=== PATIENT | male | born 1965 | race Caucasian/White ===

== ENCOUNTER 2021-06-19 10:23 | Emergency (ER) | payer OTHER ==
[2021-06-19] MEDS ORDERED: Cipro 250 MG TAB ONE (11:14)
[2021-06-19] MEDS ORDERED: metroNIDAZOLE 500 MG TAB ONE (11:14)
== END 2021-06-19 11:24 | disposition home or self-care (01) ==
LOC: NAV ERS 10:23
DX: K57.92 Diverticulitis of intestine, part unspecified, without perforation or abscess without bleeding (principal); E78.5 Hyperlipidemia, unspecified; K21.9 Gastro-esophageal reflux disease without esophagitis; E78.00 Pure hypercholesterolemia, unspecified; I25.2 Old myocardial infarction; Z79.82 Long term (current) use of aspirin; Z79.899 Other long term (current) drug therapy
CPT/HCPCS: 99283

== ENCOUNTER 2022-10-01 20:18 | Emergency (ER) | payer OTHER ==
[2022-10-01] MEDS ORDERED: Azithromycin 250 MG TAB ONE (20:47)
== END 2022-10-01 20:50 | disposition home or self-care (01) ==
LOC: NAV ERS 20:18
DX: H66.91 Otitis media, unspecified, right ear (principal); J06.9 Acute upper respiratory infection, unspecified; K21.9 Gastro-esophageal reflux disease without esophagitis; E78.00 Pure hypercholesterolemia, unspecified
CPT/HCPCS: 99283